=== PATIENT | male | born 1985 | race Two or more races ===

== ENCOUNTER 2016-04-14 16:13 | Emergency (ER) | payer OTHER ==
[~2016-04-14] VITALS: Ht 175.3 cm; Wt 99.8 kg
[2016-04-14 16:27] VITALS: BP 138/89
[2016-04-14] MEDS ORDERED: IBUPROFEN 800 MG TAB PO ONE (17:15)
== END 2016-04-14 17:53 | disposition home or self-care (01) ==
LOC: ER 16:16
DX: S96.911A Strain of unspecified muscle and tendon at ankle and foot level, right foot, initial encounter (principal); W10.9XXA Fall (on) (from) unspecified stairs and steps, initial encounter; Y93.89 Activity, other specified; Y99.8 Other external cause status; Y92.89 Other specified places as the place of occurrence of the external cause
CPT/HCPCS: 73610; 73630

== ENCOUNTER 2023-05-11 08:30 | Emergency (ER) | payer MEDICARE, MEDICAID ==
[~2023-05-11] VITALS: Ht 175.3 cm; Wt 102.6 kg
[2023-05-11 09:11] VITALS: BP 121/85; PULSE 103; RESP 16; O2SAT 95
[2023-05-11] MEDS ORDERED: IBUP-1456 PO (09:58)
[2023-05-11] MEDS ORDERED: BACL10TA PO (09:58)
[2023-05-11 10:02] VITALS: TEMP 97.9
[2023-05-11] MEDS: IBUPROFEN 800 MG TAB PO ONE (10:02)
== END 2023-05-11 10:02 | disposition home or self-care (01) ==
LOC: ER 08:30
DX: S76.812A Strain of other specified muscles, fascia and tendons at thigh level, left thigh, initial encounter (principal); F20.9 Schizophrenia, unspecified; Z79.899 Other long term (current) drug therapy; X58.XXXA Exposure to other specified factors, initial encounter; Y93.89 Activity, other specified; Y92.89 Other specified places as the place of occurrence of the external cause; Y99.8 Other external cause status
CPT/HCPCS: 93971